=== PATIENT | female | born 1945 | race Caucasian/White ===

== ENCOUNTER 2018-04-13 16:32 | Emergency (ER) | payer MEDICARE ==
[~2018-04-13] VITALS: Ht 152.4 cm; Wt 49.9 kg
[~2018-04-13 16:32] MED LIST: ACTONEL 150 MG; CALGLU500 PO; CARI350; CARI350 PO; CELE200 PO; CETI10; CITRACAL; CITRACAL PO; DESV50; ERGO50000 PO; GABA600 PO; HYDACE10B; IMITREX; METO100ER PO; OMEP20ER PO; POTCHL10ER PO; PRAV10 PO; PREVASTATIN; PRISTIQ PO; PROP20 PO; PROVASTATIN PO; PYRI100; SERT25 PO; SERT50; SERT50 PO; SUMATRIPTAN 50 MG; TERI750 SUBQ; TOPI100 PO; TOPI25 PO; TOPI50 PO; TRAZ50; TRAZADONE PO; TRAZODONE PO; TRIHYD253A PO; VENL75ER; VENL75ER PO; VITAMIN B
[2018-04-13 16:49] LABS: BASOPHILS ABSOLUTE AUTO 0.06 K/mm3 (0.00-0.23); BASOPHILS PERCENT AUTO 1 % (0-2); EOSINOPHILS ABSOLUTE AUTO 0.12 K/mm3 (0.00-0.68); EOSINOPHILS PERCENT AUTO 1 % (0-6); Hematocrit 38.8 % (33.0-51.0); Hemoglobin 13.1 g/dL (11.5-16.0); IMMATURE GRAN ABSOLUTE AUTO 0.07 K/mm3 (0.00-0.10); IMMATURE GRAN PERCENT AUTO 1 % (0-1); LYMPHOCYTES ABSOLUTE AUTO 2.24 K/mm3 (0.84-5.20); LYMPHOCYTES PERCENT AUTO 26 % (21-46); MONOCYTES ABSOLUTE AUTO 0.87 K/mm3 (0.16-1.47); MONOCYTES PERCENT AUTO 10 % (4-13); Mean Corpuscular HGB 31.7 pg (26.0-34.0); Mean Corpuscular HGB Conc 33.8 g/dL (31.5-36.5); Mean Corpuscular Volume 94 fL (80-100); Mean Platelet Volume 7.9 fL (9.1-12.4); NEUTROPHILS ABSOLUTE AUTO 5.16 K/mm3 (1.96-9.15); NEUTROPHILS PERCENT AUTO 61 % (41-73); Platelet Count 213 K/mm3 (150-400); RDW Coefficient Variation 12.5 % (11.7-14.2); RDW Standard Deviation 43.3 fL (35.1-46.3); Red Blood Cell Count 4.13 M/mm3 (3.80-5.20); White Blood Cell Count 8.52 K/mm3 (4.00-11.30)
[2018-04-13 17:02] LABS: Prothrombin Time Results 10.4 Sec (9.7-11.5)
[2018-04-13 17:14] LABS: Alanine Aminotransfer (ALT/SGP 45 U/L (12-78); Albumin, Blood 3.9 g/dL (3.4-5.0); Albumin/Globulin Ratio 1.4 (0.8-1.8); Alk Phos 70 U/L (50-136); Anion Gap 9 mmol/L (6-16); Aspartate Aminotrans (AST/SGOT 28 U/L (12-37); Bilirubin, Total 0.3 mg/dL (0.1-1.0); Blood Urea Nitrogen 16 mg/dL (8-24); Bun/Creatinine Ratio 22.5 (12.0-20.0); CO2, Blood 26 mmol/L (21-32); Calcium, Blood 8.4 mg/dL (8.5-10.1); Chloride, Blood 91 mmol/L (98-108); Creatinine, Blood 0.71 mg/dL (0.40-1.00); Globulin, Blood 2.8 g/dL (2.2-4.0); Glomerular Filtration Rate >60 (60-); Glucose, Blood 101 mg/dL (70-99); Potassium, Blood 3.9 mmol/L (3.5-5.5); Sodium, Blood 126 mmol/L (136-145); Total Protein, Blood 6.7 g/dL (6.4-8.2)
[2018-04-13 17:25] LABS: Ethanol (Alcohol), Blood, Med 297 mg/dL
[2018-04-14] MEDS ORDERED: MELO7.5 PO (00:15)
[2018-04-14] MEDS ORDERED: POTCIT10 (00:18)
== END 2018-04-13 21:02 | disposition home or self-care (01) ==
LOC: ER 16:32
PROVIDERS: Emergency Medicine
DX: S01.01XA Laceration without foreign body of scalp, initial encounter (principal); S40.011A Contusion of right shoulder, initial encounter; F10.129 Alcohol abuse with intoxication, unspecified; I10 Essential (primary) hypertension; F32.9 Major depressive disorder, single episode, unspecified; Z88.2 Allergy status to sulfonamides; Z88.8 Allergy status to other drugs, medicaments and biological substances; Z88.5 Allergy status to narcotic agent; Z79.899 Other long term (current) drug therapy; V40.5XXA Car driver injured in collision with pedestrian or animal in traffic accident, initial encounter; W22.8XXA Striking against or struck by other objects, initial encounter; Y90.8 Blood alcohol level of 240 mg/100 ml or more
CPT/HCPCS: 70450; 71045; 71260; 72125; 73030; 74177; 80053; 83690; 85025; 85610; 85730; 86850; 86900; 86901; 93005; 93010; 96374; 99284; G0480; J3010; Q9967

== ENCOUNTER 2018-11-19 07:48 | Day surgery (SDC) | payer MEDICARE ==
[~2018-11-19] VITALS: Ht 157.5 cm; Wt 50.2 kg
[~2018-11-19 07:48] MED LIST changes: +AMLO5 PO; +BENZ100A PO; +BIOTIN2500 MCG PO; +CALCITRATE200 MG PO; +DIVIGEL1 EAC1 VAG; +Dyazide 37.5-21 EACH PO; +Gabapentin600 MG PO; +Imitrex100 MG PO; +MELO7.5 PO; +METPHE5 PO; +Micro-K10 MEQ PO; +Norco 10-325 T1 EACH PO; +Omeprazole20 M1 PO; +POTCIT10; +PRAVASTATIN SOD10 MG PO; +Pristiq100 MG PO; +Reclast 55 MG/100 M IV; +SERT100 PO; +Trazodone HCl300 MG PO; +VITAMIN D35000 UNIT PO; +ZYRTEC10 M1 PO
--- NOTE | 2018-11-19 08:49 | NUR ---
11/19/18 0849 Valdez Sanchez FIRST IV ATTEMP IN RIGHT HAND WOULD NOT THREAD. SECOND ATTEMP IN RIGHT FOREARM SUCCESSFUL. CALL LIGHT WITHIN REACH. PT RESTING COMFORTABLY.
--- NOTE | 2018-11-19 10:24 | NUR ---
11/19/18 Lata Franco 1% LIDOCAINE MIXED WITH .25% MARCAINE FOR LOCAL, PER DR AMARAL.
--- NOTE | 2018-11-19 10:56 | NUR ---
11/19/18 1056 Kate Meadows PT INTO RECLINER AT 1037, STEADY DURING TRANSFER. PT DAYANAAinsley KHOURY IS ON HER WAY. PT DENIES PAIN OR NAUSEA AT THIS TIME. TOLERATING PO NOURISHMENT. VSS. PILLOW BEHIND LOWER BACK FOR COMFORT, LEGS ELEVATED, AND CALL LIGHT IN REACH.
== END 2018-11-19 11:14 | disposition home or self-care (01) ==
LOC: ORSCSDS 07:48
PROVIDERS: Surgery
PROC: 0JBH0ZZ Excision of Left Lower Arm Subcutaneous Tissue and Fascia, Open Approach (ICD-10-PCS; principal; 2018-11-19 09:00)
DX: D17.22 Benign lipomatous neoplasm of skin and subcutaneous tissue of left arm (principal); I10 Essential (primary) hypertension; Z79.899 Other long term (current) drug therapy
CPT/HCPCS: 88304; J0690; J2250; J3010; J7120

== ENCOUNTER 2018-12-22 06:47 | Day surgery (SDC) | payer MEDICARE ==
[~2018-12-22] VITALS: Ht 157.5 cm; Wt 49.4 kg
[2018-12-22] MEDS ORDERED: HYDR1TAB94 PO (07:18)
== END 2018-12-22 08:30 | disposition home or self-care (01) ==
LOC: ORSCSDS 06:47
PROVIDERS: Ophthalmology
PROC: 08RJ3JZ Replacement of Right Lens with Synthetic Substitute, Percutaneous Approach (ICD-10-PCS; principal; 2018-12-22 08:00)
DX: H25.11 Age-related nuclear cataract, right eye (principal); I10 Essential (primary) hypertension; G47.33 Obstructive sleep apnea (adult) (pediatric); Z87.891 Personal history of nicotine dependence; Z79.899 Other long term (current) drug therapy
CPT/HCPCS: J2001; J2250; J3301; J7120; V2632

== ENCOUNTER 2019-01-19 08:05 | Day surgery (SDC) | payer MEDICARE ==
[~2019-01-19] VITALS: Ht 157.5 cm; Wt 50.8 kg
[~2019-01-19 08:05] MED LIST changes: +HYDR1TAB94 PO
--- NOTE | 2019-01-19 15:18 | NUR ---
01/19/19 1518 Lamont Perez LATE ENTRY NARRATIVE PATIENT INTO SDU RECLINER, VSS, TOLERATING PO FLUIDS AND CRACKERS WELL, DENIES PAIN AT THIS TIME. IS AT CHAIRSIDE DC INSTRUCTIONS REVIEWED WITH PATIENT AND , NO QUESTIONS AT THIS TIME. NURSE ASSISTED PATIENT WALK OUT TO HER RIDE HOME.
== END 2019-01-19 10:35 | disposition home or self-care (01) ==
LOC: ORSCSDS 08:05
PROVIDERS: Ophthalmology
PROC: 08RK3JZ Replacement of Left Lens with Synthetic Substitute, Percutaneous Approach (ICD-10-PCS; principal; 2019-01-19 09:30)
DX: H25.12 Age-related nuclear cataract, left eye (principal); I10 Essential (primary) hypertension; Z79.899 Other long term (current) drug therapy
CPT/HCPCS: J2001; J2250; J3010; J3301; J7120; V2632

== ENCOUNTER → 2019-04-06 | Outpatient (CLI) | payer MEDICARE | END | disposition home or self-care (01) | LOC: LAB 11:10 → LAB SHORT 11:10 | DX: N39.0 Urinary tract infection, site not specified (principal) | CPT/HCPCS: 87077; 87086; 87186 ==

== ENCOUNTER 2019-04-10 12:09 | Emergency (ER) | payer MEDICARE ==
[~2019-04-10] VITALS: Ht 157.5 cm; Wt 49.0 kg
== END 2019-04-10 13:00 | disposition home or self-care (01) ==
LOC: ER 12:09
DX: S00.31XA Abrasion of nose, initial encounter (principal); M25.511 Pain in right shoulder; W01.0XXA Fall on same level from slipping, tripping and stumbling without subsequent striking against object, initial encounter; Z88.2 Allergy status to sulfonamides; Z88.5 Allergy status to narcotic agent; Z88.8 Allergy status to other drugs, medicaments and biological substances; Z79.899 Other long term (current) drug therapy; I10 Essential (primary) hypertension; F32.9 Major depressive disorder, single episode, unspecified; K21.9 Gastro-esophageal reflux disease without esophagitis; E78.5 Hyperlipidemia, unspecified; Z87.891 Personal history of nicotine dependence
CPT/HCPCS: 73030; 99283-25

== ENCOUNTER → 2020-03-19 | Outpatient (CLI) | payer MEDICARE ==
[2020-03-19 13:53] LABS: Source, Urine Clean Catch
[2020-03-19 15:02] LABS: Bilirubin, Urine Neg (Neg); Blood, Urine Neg (Neg); Glucose Qualitative, Urine Neg (Neg); Ketones, Urine Neg (Neg); Leukocyte Esterase, Urine Neg (Neg); Nitrite, Urine Pos (Neg); Protein, Urine Neg (Neg); Specific Gravity, Urine 1.015 (1.003-1.022); Urobilinogen, Urine 1+ (Normal)
[2020-03-19 15:09] LABS: Appearance, Urine Clear (Clear); Color, Urine Orange (P-Yellow)
[2020-03-19 15:12] LABS: Bacteria Few /hpf; Mucus Light (0-Heavy); Red Blood Cells, Urine Not Seen /hpf (0-2); Renal Epithelial Rare /hpf (0-Rare); Squamous Epithelial Cells Few /hpf (Few)
== END | disposition home or self-care (01) ==
LOC: LAB SHORT 13:49 → OLS 13:49
PROVIDERS: Physician Assistant
DX: N39.0 Urinary tract infection, site not specified (principal)
CPT/HCPCS: 81001; 87086

== ENCOUNTER 2021-02-08 16:14 | Inpatient (IN) | payer MEDICARE ==
[~2021-02-08] VITALS: Ht 162.6 cm; Wt 52.2 kg
[2021-02-08 16:33] LABS: BASOPHILS ABSOLUTE AUTO 0.05 K/mm3 (0.00-0.23); BASOPHILS PERCENT AUTO 0 % (0-2); EOSINOPHILS ABSOLUTE AUTO 0.05 K/mm3 (0.00-0.68); EOSINOPHILS PERCENT AUTO 0 % (0-6); Hematocrit 36.6 % (33.0-51.0); Hemoglobin 12.2 g/dL (11.5-16.0); IMMATURE GRAN PERCENT AUTO 1 % (0-1); LYMPHOCYTES ABSOLUTE AUTO 0.88 K/mm3 (0.84-5.20); LYMPHOCYTES PERCENT AUTO 8 % (21-46); MONOCYTES ABSOLUTE AUTO 0.71 K/mm3 (0.16-1.47); MONOCYTES PERCENT AUTO 6 % (4-13); Mean Corpuscular HGB 34.6 pg (26.0-34.0); Mean Corpuscular HGB Conc 33.3 g/dL (31.5-36.5); Mean Corpuscular Volume 104 fL (80-100); Mean Platelet Volume 8.2 fL (9.1-12.4); NEUTROPHILS ABSOLUTE AUTO 9.64 K/mm3 (1.96-9.15); NEUTROPHILS PERCENT AUTO 84 % (41-73); Platelet Count 157 K/mm3 (150-400); RDW Coefficient Variation 13.9 % (11.7-14.2); RDW Standard Deviation 53.2 fL (35.1-46.3); Red Blood Cell Count 3.53 M/mm3 (3.80-5.20); White Blood Cell Count 11.43 K/mm3 (4.00-11.30)
[2021-02-08 17:01] LABS: Alanine Aminotransfer (ALT/SGP 23 U/L (12-78); Albumin, Blood 3.8 g/dL (3.4-5.0); Albumin/Globulin Ratio 1.4 (0.8-1.8); Alk Phos 56 U/L (50-136); Anion Gap 11 mmol/L (6-16); Aspartate Aminotrans (AST/SGOT 28 U/L (12-37); Bilirubin, Total 0.2 mg/dL (0.1-1.0); Blood Urea Nitrogen 18 mg/dL (8-24); CO2, Blood 23 mmol/L (21-32); Calcium, Blood 8.3 mg/dL (8.5-10.1); Chloride, Blood 101 mmol/L (98-108); Creatinine, Blood 0.67 mg/dL (0.40-1.00); Globulin, Blood 2.8 g/dL (2.2-4.0); Glomerular Filtration Rate >60 (60-); Glucose, Blood 124 mg/dL (70-99); Potassium, Blood 3.5 mmol/L (3.5-5.5); Sodium, Blood 135 mmol/L (136-145); Total Protein, Blood 6.6 g/dL (6.4-8.2)
[2021-02-08 17:04] LABS: International Normalized Ratio 0.95; Prothrombin Time Results 10.2 Sec (9.7-11.5)
[2021-02-08 18:27] LABS: Influenza A, PCR NEGATIVE (NEGATIVE); Influenza B, PCR NEGATIVE (NEGATIVE); Resp Syncytial Virus, PCR NEGATIVE (NEGATIVE); SARS-Cov-2 (COVID-19) PCR, MMC NEGATIVE (NEGATIVE)
[2021-02-08] MEDS ORDERED: HYDROCODONE-AC1 EA11 PO (18:37)
[2021-02-08] MEDS ORDERED: PRAVASTATIN SOD20 MG PO (18:38)
[2021-02-08] MEDS ORDERED: OMEP20ER PO (18:38)
[2021-02-08] MEDS ORDERED: BENZONATATE100 MG PO (18:38)
[2021-02-08] MEDS ORDERED: AMLODIPINE BESY10 MG PO (18:38)
[2021-02-08] MEDS ORDERED: TOPROL XL50 MG PO (18:39)
[2021-02-08] MEDS ORDERED: GABAPENTIN600 MG PO (18:39)
[2021-02-08] MEDS ORDERED: TRAZ150T57 PO (18:39)
[2021-02-08] MEDS ORDERED: KLOR-CON 1010 ME1 PO (18:40)
[2021-02-08] MEDS ORDERED: Dyazide 37.5/251 EA PO (18:40)
[2021-02-08] MEDS ORDERED: CELEBREX200 MG PO (19:29)
[2021-02-08] MEDS ORDERED: METO50ER PO (19:29)
[2021-02-08] MEDS ORDERED: DESVENLAFAXINE100 M3 PO (19:29)
--- NOTE | 2021-02-08 21:32 | NUR ---
PT RECEIVED FOR RECOVERY FROM ICU, REPORT FROM JANICE CRUZ AND . IV INFUSING IN RIGHT FOREARM. SALINE LOCK LEFT AC. TRACTION TO LEFT LEG, OBVIOUS DEFORMITY. LEFT ARM PAINFUL WITH LIGHT TOUCH. PT ABLE TO ANSWER QUESTIONS,ASK QUESTIONS AND REQUEST BLANKETS, WATER AND HEATER TURNED UP. PT MEDICATED FOR PAIN OF 9/10 WITH FENTANYL. REPORT TO JANICE NEWBY. WILL GO TO CT ON WAY TO ROOM PER PROVIDER ORDER.
[2021-02-09 04:08] LABS: BASOPHILS ABSOLUTE AUTO 0.02 K/mm3 (0.00-0.23); BASOPHILS PERCENT AUTO 0 % (0-2); EOSINOPHILS PERCENT AUTO 0 % (0-6); Hematocrit 21.5 % (33.0-51.0); Hemoglobin 7.1 g/dL (11.5-16.0); IMMATURE GRAN ABSOLUTE AUTO 0.08 K/mm3 (0.00-0.10); IMMATURE GRAN PERCENT AUTO 1 % (0-1); LYMPHOCYTES ABSOLUTE AUTO 0.49 K/mm3 (0.84-5.20); LYMPHOCYTES PERCENT AUTO 6 % (21-46); MONOCYTES ABSOLUTE AUTO 0.87 K/mm3 (0.16-1.47); MONOCYTES PERCENT AUTO 10 % (4-13); Mean Corpuscular HGB 34.3 pg (26.0-34.0); Mean Corpuscular Volume 104 fL (80-100); Mean Platelet Volume 8.3 fL (9.1-12.4); NEUTROPHILS ABSOLUTE AUTO 6.87 K/mm3 (1.96-9.15); NEUTROPHILS PERCENT AUTO 83 % (41-73); Platelet Count 131 K/mm3 (150-400); RDW Standard Deviation 52.8 fL (35.1-46.3); Red Blood Cell Count 2.07 M/mm3 (3.80-5.20); White Blood Cell Count 8.33 K/mm3 (4.00-11.30)
--- NOTE | 2021-02-09 04:13 | NUR ---
SHIFT SUMMARY NEW ADMIT YESTARDAY EVENING. PT TO OR YESTARDAY FOR CLOSED REDUCTION TO LEFT HIP. NPO THIS AM FOR POSSIBLE SURGICAL INTERVENTION TO FIX LEFT FEMUR + HUMERUS FX. PAIN CONTROLLED WITH 0.5 MG IV DILAUDID. NO NAUSEA/EMESIS. NPO SINCE MIDNIGHT. LLE DEFORMED + EXTERNALLY ROTATED AND SHORTENED. PPP, DENIES N/T, MOVES TOES + FINGERS WELL ON ALL EXTREMITIES. LLE IN 5LBS BUCKS TRACTION. VALLE PLACED THIS AM. PT ANXIOUS AT TIMES REGARDING TREATMENT AND WAIT TIMES, DECREASED ANXIETY WITH REASSURANCE. PT CURRENTLY RESTING IN BED WITH CALL LIGHT IN REACH.
[2021-02-09 04:37] LABS: Albumin, Blood 2.8 g/dL (3.4-5.0); Anion Gap 6 mmol/L (6-16); Blood Urea Nitrogen 18 mg/dL (8-24); Bun/Creatinine Ratio 31.1 (12.0-20.0); CO2, Blood 24 mmol/L (21-32); Calcium, Blood 7.3 mg/dL (8.5-10.1); Chloride, Blood 104 mmol/L (98-108); Creatinine, Blood 0.58 mg/dL (0.40-1.00); Glomerular Filtration Rate >60 (60-); Glucose, Blood 118 mg/dL (70-99); Potassium, Blood 3.9 mmol/L (3.5-5.5); Sodium, Blood 134 mmol/L (136-145)
--- NOTE | 2021-02-09 08:19 | NUR ---
OTHER STAFF HERE TO TAKE PT TO HAVE PROCEDURE. PT MED WITH SIP OF WATER WITHOUT DIFFICULTY.
--- NOTE | 2021-02-09 13:26 | NUR ---
PT BACK FROM HAVING PROCEDURE. PT HAS SMALL AMT OF DRAINAGE ON DRESSINGS, PRESCHOOL HEAD TEACHER REPORTS UNCHANGED FROM WHEN COMING OUT OF SURGERY. PT ALERT. PT REPORTS HAVING PAIN, WILL MED PRN PAIN. PT ABLE TO FOLLOW COMMANDS. WIGGLES TOES. PAS IN PLACE. PPX4.
--- NOTE | 2021-02-09 13:27 | NUR ---
PT REPORTED TO HAVE THE 2 UNITS OF BLOOD ORDERED EARLIER TODAY WHEN PT WAS OUT OF ROOM, SEE PAPER CHARTING.
--- NOTE | 2021-02-09 14:27 | NUR ---
PT REPORTS PAIN GETTING BETTER. PT REQ WATER, REPORTS WANTING TO START OUT WITH CLEAR LIQUID DIET EXCEPT MAYBE SOME SALTINES. DISCUSSED DIET WITH DR HERRERA. SEE ORDERS. FAMILY IN ROOM. WILL ASSIST WITH ADL'S PRN.
[2021-02-09 16:19] LABS: Percent Saturation 27.8 % (15.0-50.0)
--- NOTE | 2021-02-09 17:59 | NUR ---
WHEN PT BACK FROM IMAGING, PT WAS TRANSFERRED WITH MULT ASSIST. PT C/O PAIN AND NAUSEA. NO MEDICATION ORDERED FOR NAUSEA. PT REQUESTED TO BE MEDICATED FOR PAIN BEFORE CALLING DR FOR NAUSEA MEDICATION. PT MED FOR PAIN. PT RESTING QUIELTY AFTER HAVING PAIN MEDICATION. DISCUSSED NO MED FOR NAUSEA WITH DR GAMING. SEE ORDER.
--- NOTE | 2021-02-09 18:30 | NUR ---
SHIFT SUMMARY PT TOLERATING C.L. DIET ALTHOUGH NAUSEOUS EARLIER FROM WHAT APPEARED TO BE PAIN. PT RESTING QUIETLY RESP E/U NOW. PT BEEN ASSISTED WITH ADL'S PRN. PT BEEN MED PRN FOR PAIN. PT REQUESTED TO HAVE C.L. DIET, ORDERED. PT FAMILY IN ROOM EALIER TODAY. PT USING CALL LIGHT APPR. PT DRESSING CONT TO BE IN PLACE, VALLE OFF FLOOR, STAT LOC ON. BED ALARM IN PLACE. PT BEEN MED PRN FOR PAIN. PT HAD PROCEDURE TODAY. PT REPORTED TO HAVE 2 UNITS OF BLOOD DURING PROCEDURE, SEE PAPER CHARTING. WILL REPORT TO ONCOMING NURSE.
[2021-02-10 04:13] LABS: Hematocrit 21.2 % (33.0-51.0); Hemoglobin 7.3 g/dL (11.5-16.0); Mean Corpuscular HGB 33.2 pg (26.0-34.0); Mean Corpuscular HGB Conc 34.4 g/dL (31.5-36.5); Mean Platelet Volume 8.4 fL (9.1-12.4); Platelet Count 115 K/mm3 (150-400); RDW Coefficient Variation 18.2 % (11.7-14.2); RDW Standard Deviation 63.5 fL (35.1-46.3); White Blood Cell Count 6.21 K/mm3 (4.00-11.30)
[2021-02-10 04:17] LABS: Mean Corpuscular Volume 96 fL (80-100)
--- NOTE | 2021-02-10 04:19 | NUR ---
SHIFT SUMMARY POD#1. AAOX4. DISCOMFORT DECREASED WITH NORCO Q6H + 0.5MG IV DILAUDID X3 THIS SHIFT FOR BREAKTHROUGH PAIN. NO NAUSEA/EMESIS. DRESSING TO LEFT HIP, SCANT AMOUNT SS DRAINAGE ALONG INCISION, NO INCREASE THIS SHIFT. PPP, DENIES N/T ALL EXTREMITIES, MOVES TOES + FINGERS WELL. LUE WITH BRUISING TO ANTERIOR DELTOID + BICEP. PT RESTED WELL T/O NIGHT. GOOD PO INTAKE + URINE OUTPUT THROUGH VALLE. CONTINUE TO ENCOURAGE REPOSITIONING IN BED TOLERATED. AWAITING LABS THIS MORNING. PT CURRENTLY RESTING IN BED WITH CALL LIGHT IN REACH.
[2021-02-10 04:30] LABS: Anion Gap 4 mmol/L (6-16); Blood Urea Nitrogen 14 mg/dL (8-24); Bun/Creatinine Ratio 23.8 (12.0-20.0); CO2, Blood 27 mmol/L (21-32); Calcium, Blood 7.3 mg/dL (8.5-10.1); Chloride, Blood 104 mmol/L (98-108); Creatinine, Blood 0.59 mg/dL (0.40-1.00); Glomerular Filtration Rate >60 (60-); Glucose, Blood 114 mg/dL (70-99); Potassium, Blood 3.8 mmol/L (3.5-5.5); Sodium, Blood 135 mmol/L (136-145)
[2021-02-10 05:27] LABS: BAND PERCENT MAN 5 % (0-8); BASOPHILS ABSOLUTE MAN 0.06 K/mm3 (0.00-0.23); BASOPHILS PERCENT MAN 1 % (0-2); EOSINOPHILS PERCENT MAN 0 % (0-6); LYMPHOCYTES ABSOLUTE MAN 0.68 K/mm3 (0.84-5.20); LYMPHOCYTES PERCENT MAN 11 % (21-46); MONOCYTES ABSOLUTE MAN 0.55 K/mm3 (0.16-1.47); MONOCYTES PERCENT MAN 9 % (4-13); SEG NEUTROPHILS PERCENT MAN 74 % (41-73); TOTAL CELLS COUNTED 100
--- NOTE | 2021-02-10 06:21 | NUR ---
PT WITH INCREASED PAIN + LOW H+H HEMOGLOBIN 7.3 WITH LOW BP, DR JOHNSON NOTIFIED, NO NEW ORDERS AT THIS TIME.
--- NOTE | 2021-02-10 15:43 | NUR ---
SHIFT SUMMARY PT A&OX4, VSS/RA, POD1 L HIP REPAIR, AQUACEL CHANGED TODAY, NWB. PAIN MANAGED PER EMAR. UYEN PO, DENIES N&V. VALLE PATENT & DRAINING YELLOW URINE, STAT LOCK ON, OFF FLOOR. PHYSICAL THERAPY EVAL'D, STOOD BEDSIDE, PIVOT WITH 2 MAX ASSIST TO CHAIR. WILL REPORT TO ONCOMING NIC RN.
[2021-02-11 05:13] LABS: Hematocrit 20.5 % (33.0-51.0); Mean Corpuscular HGB Conc 34.1 g/dL (31.5-36.5); Mean Corpuscular Volume 97 fL (80-100); Mean Platelet Volume 8.6 fL (9.1-12.4); NRBC ABSOLUTE 0.02 K/mm3 (0.00-0.02); NRBC Auto 0.3 /100 WBC (0.0-0.2); Platelet Count 109 K/mm3 (150-400); RDW Coefficient Variation 16.9 % (11.7-14.2); RDW Standard Deviation 59.2 fL (35.1-46.3); Red Blood Cell Count 2.12 M/mm3 (3.80-5.20)
[2021-02-11 05:34] LABS: BAND PERCENT MAN 11 % (0-8); BASOPHILS ABSOLUTE MAN 0.06 K/mm3 (0.00-0.23); BASOPHILS PERCENT MAN 1 % (0-2); EOSINOPHILS ABSOLUTE MAN 0.06 K/mm3 (0.00-0.68); EOSINOPHILS PERCENT MAN 1 % (0-6); LYMPHOCYTES ABSOLUTE MAN 0.53 K/mm3 (0.84-5.20); LYMPHOCYTES PERCENT MAN 8 % (21-46); MONOCYTES ABSOLUTE MAN 0.46 K/mm3 (0.16-1.47); MONOCYTES PERCENT MAN 7 % (4-13); NEUTROPHILS ABSOLUTE MAN 5.56 K/mm3 (1.96-9.15); SEG NEUTROPHILS PERCENT MAN 72 % (41-73); TOTAL CELLS COUNTED 100
--- NOTE | 2021-02-11 05:35 | NUR ---
SHIFT SUMMARY POD#2 ORIF LEFT FEMUR. AAOX4. ANXIOUS. DISCOMFORT + NEW HEADACHE CONTROLLED WITH 2 NORCO Q4H. NO NAUSEA/EMESIS. LEFT HIP INCISION WITH AQUACEL C/D/I. PPP, DENIES N/T BLE, MOVES TOES WELL. LUE WITH MODERATE SIZE BRUISING TO ANTERIOR SHOULDER, NO ACUTE CHANGE THIS SHIFT. VALLE SECURE WITH LARGE AMOUNTS OF YELLOW URINE OUT. GOOD PO INTAKE. NO ACUTE CHANGES OVER NIGHT. PT CURRENTLY RESTING IN BED WITH CALL LIGHT IN REACH.
[2021-02-11 08:29] LABS: BASOPHILS ABSOLUTE AUTO 0.02 K/mm3 (0.00-0.23); BASOPHILS PERCENT AUTO 0 % (0-2); EOSINOPHILS ABSOLUTE AUTO 0.03 K/mm3 (0.00-0.68); EOSINOPHILS PERCENT AUTO 0 % (0-6); IMMATURE GRAN ABSOLUTE AUTO 0.06 K/mm3 (0.00-0.10); IMMATURE GRAN PERCENT AUTO 1 % (0-1); LYMPHOCYTES ABSOLUTE AUTO 1.02 K/mm3 (0.84-5.20); LYMPHOCYTES PERCENT AUTO 15 % (21-46); MONOCYTES ABSOLUTE AUTO 0.83 K/mm3 (0.16-1.47); MONOCYTES PERCENT AUTO 12 % (4-13); NEUTROPHILS ABSOLUTE AUTO 5.06 K/mm3 (1.96-9.15); NEUTROPHILS PERCENT AUTO 72 % (41-73)
[2021-02-11 08:41] LABS: IMMATURE RETIC FRACTION 29.5 % (2.3-16.0); RETIC HGB EQUIVALENT 38.3 pg (28.20-36.60); RETICULOCYTE ABSOLUTE 0.1336 M/mm3 (0.0200-0.1100); RETICULOCYTE COUNT PERCENT 6.27 % (0.50-2.50)
--- NOTE | 2021-02-11 13:15 | NUR ---
PT C/O SWELLING ON TONGUE, STATES SHE FEELS LIKE SHE IS HAVING DIFFICULTY SPEAKING, PT'S SPEECH IN COMPREHENSIBLE, DENIES ANY NEW NUMBNESS OR TINGLING, SOB OR ANY OTHER SYMPTOMS, APPEARS TO BE IN NO DISTRESS DR. GAMING NOTIFIED, CAME AND SAW PT, NO NEW ORDERS, PT SITING ON CHAIR, CALL LIGHT WITHIN REACH, INSTRUCTED TO CALL IF FEELING WORSE.
--- NOTE | 2021-02-11 18:21 | NUR ---
SUMMARY OOB TO CHAIR W/ PT/OT TODAY, TOLERATED FAIRLY WELL, 2 PERSON MAX ASSIST BACK TO BED, REPORTS PAIN IS TOLERABLE WITH NORCO Q4HRS PRN, DENIES ANY DIZZINESS WHEN UP, HAD A BM TODAY, TOLERATING DIET WELL, LLE DSG C/D/I, PLAN FOR SURGICAL REPAIR OF L HUMERUS LATER ON PER DR. HERRERA, NO ACUTE CHANGES THIS SHIFT.
--- NOTE | 2021-02-12 02:39 | NUR ---
SHIFT SUMMARY: POD 3 LEFT FEMUR ORIF PATIENT IS ALERT AND ORIENTED X4 WHILE AWAKE. SHE HAS BEEN ASLEEP MAJORITY OF THE SHIFT. VS ARE WNL AND IS ON RA. PAIN IS CONTROLLED WITH 2 NORCO'S PO. LEFT HIP AQUACEL IS INTACT. PATIENT DENIES HAVING NUMBNESS OR TINGLING IN ANY EXTREMITIES. SHE IS A 1 PERSON ASSIST ON THE BEDPAN BUT IS TWO PERSON MAX WHEN ATTEMPTING TO GET UP. SHE IS NON WEIGHT BEARING ON THE LEFT LEG. SHE HAS MODERATE SIZE BRUISE ON HER RIGHT SHOULDER. PATIENT HAS BEEN VOIDING AND TOLERATING PO INTAKE. SHE CALLS APPROPRIATELY. CALL LIGHT WITHIN REACH. THE PLAN IS TO CONTINUE WORKING WITH PT/OT TODAY.
[2021-02-12 04:35] LABS: Hematocrit 19.1 % (33.0-51.0); Hemoglobin 6.4 g/dL (11.5-16.0)
--- NOTE | 2021-02-12 05:24 | NUR ---
PATIENTS MORNING LABS CAME BACK THIS MORNING. HER Hgb CAME BACK AT 6.4 AND HER HR IS 120 BPM THIS MORNING. THIS NURSE CALLED THE HOSPITALIST ABOUT THIS INFORMATION. HOSPITALIST ORDERED 1 PACK OF RBC'S TO BE ADMINISTERED. LABS WERE ORDERED. CHARGE NURSE NOTIFIED. PATIENT IS LAYING IN BED WITH CALL LIGHT WITHIN REACH. WILL WAIT FOR RBC'S TO COME FROM BLOOD BANK TO ADMINISTER TO PATIENT.
[2021-02-12 16:47] LABS: Hematocrit 25.7 % (33.0-51.0); Hemoglobin 8.7 g/dL (11.5-16.0)
--- NOTE | 2021-02-12 18:01 | NUR ---
WORKED W/ PT/OT TODAY, PAIN TOLERABLE WITH NORCO, DENIES ANY DIZZINESS, VSS, L HIP DSG CHANGED TODAY, PLAN FOR SURGERY ON L HUMERUS ON THURSDAY PER DR. HERRERA, PT AND PT'S DAUGHTER MET WITH DR. HERRERA THIS AFTERNOON TO DISCUSS SURGERY, NO ACUTE CHANGES THIS SHIFT.
[2021-02-13 05:06] LABS: BASOPHILS ABSOLUTE AUTO 0.02 K/mm3 (0.00-0.23); BASOPHILS PERCENT AUTO 0 % (0-2); EOSINOPHILS ABSOLUTE AUTO 0.19 K/mm3 (0.00-0.68); EOSINOPHILS PERCENT AUTO 3 % (0-6); Hematocrit 24.9 % (33.0-51.0); Hemoglobin 8.2 g/dL (11.5-16.0); IMMATURE GRAN ABSOLUTE AUTO 0.13 K/mm3 (0.00-0.10); IMMATURE GRAN PERCENT AUTO 2 % (0-1); LYMPHOCYTES ABSOLUTE AUTO 1.11 K/mm3 (0.84-5.20); LYMPHOCYTES PERCENT AUTO 19 % (21-46); MONOCYTES ABSOLUTE AUTO 0.95 K/mm3 (0.16-1.47); MONOCYTES PERCENT AUTO 17 % (4-13); Mean Corpuscular HGB 31.8 pg (26.0-34.0); Mean Corpuscular HGB Conc 32.9 g/dL (31.5-36.5); Mean Corpuscular Volume 97 fL (80-100); NEUTROPHILS ABSOLUTE AUTO 3.36 K/mm3 (1.96-9.15); NEUTROPHILS PERCENT AUTO 58 % (41-73); NRBC ABSOLUTE 0.04 K/mm3 (0.00-0.02); NRBC Auto 0.7 /100 WBC (0.0-0.2); Platelet Count 156 K/mm3 (150-400); RDW Coefficient Variation 19.2 % (11.7-14.2); RDW Standard Deviation 67.2 fL (35.1-46.3); Red Blood Cell Count 2.58 M/mm3 (3.80-5.20); White Blood Cell Count 5.76 K/mm3 (4.00-11.30)
--- NOTE | 2021-02-13 05:28 | NUR ---
SHIFT SUMMARY: PT POD#4 FOR ORIF TO LEFT FEMUR. UPON INITIAL ASSESSMENT, LLE NOTED TO BE SWOLLEN AND WARM TO TOUCH. PT NOT COMPLAINING OF SIGNIFICANT PAIN AT THIS TIME. THIS MORNING LLE APPEARS TO BE SLIGHTLY MORE SWOLLEN COMPARED TO BEGINNING OF SHIFT. SKIN APPEARS TIGHT. MEASUREMENTS TAKEN TO BLE'S. JUDY KNEE APPROX 5CM GREATER THAN RIGHT KNEE AND LEFT THIGH APPROX 11CM GREATER THAN RIGHT THIGH. PEDAL PULSE HAS REMAINED STRONG T/O SHIFT. PT ABLE TO WIGGLE TOES. DENIES N/T THROUGHOUT. HGB STABLE THIS MORNING AT 8.2. WILL NOTIFY DR OF PT CONDITION PRIOR TO SHIFT CHANGE.
[2021-02-13 05:31] LABS: Anion Gap 5 mmol/L (6-16); Blood Urea Nitrogen 10 mg/dL (8-24); Bun/Creatinine Ratio 19.2 (12.0-20.0); CO2, Blood 30 mmol/L (21-32); Calcium, Blood 8.2 mg/dL (8.5-10.1); Chloride, Blood 106 mmol/L (98-108); Creatinine, Blood 0.52 mg/dL (0.40-1.00); Glomerular Filtration Rate >60 (60-); Glucose, Blood 88 mg/dL (70-99); Potassium, Blood 3.7 mmol/L (3.5-5.5); Sodium, Blood 141 mmol/L (136-145)
--- NOTE | 2021-02-13 07:31 | NUR ---
ASSUMED CARE: PT RESTING QUIETLY. NIGHT RN EXPRESSED CONCERN ABOUT PT'S LEFT LEG. DISCUSSED WITH MANAGER MATH SO WE CAN CONTINUE TO MONITOR AND NOTIFY ANY PHYSICIANS THAT COME TO SEE PT. PT APPEARS TO BE IN NO ACUTE DISTRESS AT THIS TIME.
--- NOTE | 2021-02-13 09:00 | NUR ---
MELITON FROM THE ORTHO OFFICE CAME IN AND ASSESSED PT'S LEFT LEG. STATES THAT THIS KIND OF SWELLING IS NORMAL FOR PT'S SURGERY. HE STATES THAT CABLES WERE ADDED FOR SECUREMENT OF FRACTURE SO PT WILL HAVE MORE SWELLING THAN IS TYPICALLY SEEN. MELITON SUGGESTED SANDOVAL WRAP FROM KNEE TO ANKLE AND ICE, BOTH OF WHICH HAVE BEEN APPLIED.
--- NOTE | 2021-02-13 17:30 | NUR ---
PT EXPRESSED CONCERN ABOUT GETTING UTI DUE TO URGENCY AND FREQUENCY OF URINATION. SPOKE WITH DR GAMING WHO INSTRUCTS FOR CLEAN CLATCH UA AND ALLOWS FOR PT'S FAMILY TO BRING IN HOME MED THAT SHE USES TO PREVENT UTI. SEE NEW ORDERS.
--- NOTE | 2021-02-13 18:27 | NUR ---
SHIFT SUMMARY: PLAN IS FOR PT TO HAVE SHOULDER SURGERY TOMORROW. MEDICATED FOR PAIN X2. SWELLING IN LEFT LEG HAS DECREASED THIS SHIFT. PT WAS UP IN CHAIR X1. FAMILY WAS AT BEDSIDE TODAY. AWAITING URINE SAMPLE. NO FURTHER NEEDS OR CONCERNS AT THIS TIME.
[2021-02-13 20:17] LABS: Source, Urine Clean Catch
[2021-02-13 20:23] LABS: Appearance, Urine Clear (Clear); Bilirubin, Urine Neg (Neg); Blood, Urine Neg (Neg); Color, Urine Yellow (P-Yellow); Glucose Qualitative, Urine Neg (Neg); Ketones, Urine Neg (Neg); Leukocyte Esterase, Urine 1+ (Neg); Nitrite, Urine Neg (Neg); Protein, Urine Neg (Neg); Urobilinogen, Urine 1+ (Normal)
[2021-02-13 20:36] LABS: Bacteria Mod /hpf; Red Blood Cells, Urine 0-2 /hpf (0-2); Squamous Epithelial Cells Few /hpf (Few)
[2021-02-13 20:37] LABS: White Blood Cells, Urine 0-2 /hpf (0-5)
--- NOTE | 2021-02-14 03:55 | NUR ---
SHIFT SUMMARY: NO SIGNIFICANT CHANGES THIS SHIFT. S/P ORIF TO LEFT FEMUR. SANDOVAL WRAP INTACT TO LLE TO REDUCE SWELLING. SWELLING APPEARS TO BE IMPROVING. PT DENIES N/T. WIGGLES TOES. PAIN MANAGED WITH NORCO PER EMAR. PT VOIDING IN BEDPAN. INCONTINENT ONCE REQUIRING LINEN CHANGE. PT REPORTS URINARY URGENCY; PROVIDER AWARE AND UA OBTAINED. PT HAS BEEN NPO FOR PLANNED SURGERY TO LEFT SHOULDER.
[2021-02-14 04:34] LABS: Hematocrit 24.1 % (33.0-51.0); Hemoglobin 8.1 g/dL (11.5-16.0)
--- NOTE | 2021-02-14 06:15 | NUR ---
PT TAKEN TO OR AT THIS TIME
--- NOTE | 2021-02-14 07:04 | NUR ---
THE PATIENT WAS BROUGHT TO DAY SURGERY FOR HER PROCEDURE. Surgical site prepped with 2% Chlorhexidine cloth wipe. Maria Isabel Paws warming gown applied. History, Chart, Medications and Allergies reviewed before start of procedure.Lungs clear T/O to Auscultation. Patient confirms NPO status and agrees with scheduled surgery. Pre-Op teaching done. Pt verbalizes understanding.
--- NOTE | 2021-02-14 11:28 | NUR ---
1045 TO ROOM FROM PACU. PT DROWSY, ANSWERS QUESTIONS. PT REPORTS SLIGHT NUMBNESS TO LEFT THUMB. BILATERAL HANDS WARM WITH IMMEDIATE CAPILLARY REFILL. SLING IN PLACE TO LEFT ARM.
--- NOTE | 2021-02-14 18:16 | NUR ---
SUMMARY PT REPORST LEFT HIP AND SHOULDER PAIN AT LEVEL 4-10, PT STATES HAS SLEPT FOR SHORT PERIODS. UYEN PO FOODS AND FLUIDS WITHOUT NAUSEA. PT TEARFUL AT TIMES - REVIEWED HOME MED LIST AND PATIENT TELLS ME SHE WAS TAKING ZOLOFT AT HOME . CALL PLACED TO DR GAMING REGARDING ZOLOFT
[2021-02-14] MEDS ORDERED: SERT100 PO (18:24)
--- NOTE | 2021-02-15 04:08 | NUR ---
SHIFT SUMMARY POD1 L SHOULDER REPAIR, POD6 L FEMUR FX REPAIR, A/O X4 BUT OCCASIONALLY FORGETFUL, VSS, TOLERATING PO, NWB L SIDE, DRESSING C/D/I, VOIDING ON BEDPAN, PT C/O NOT HAVING BM, GAVE PT MOM IN ADDITION TO SCHEDULED STOOL SOFTENERS, STILL NO BM AT THIS TIME, PAIN MANAGED PER EMAR. NO ACUTE EVENTS THIS SHIFT. CALL LIGHT IN REACH, WILL CONTINUE TO MONITOR AND REPORT TO ONCOMING DAY RN.
[2021-02-15 04:36] LABS: BASOPHILS ABSOLUTE AUTO 0.03 K/mm3 (0.00-0.23); BASOPHILS PERCENT AUTO 0 % (0-2); EOSINOPHILS PERCENT AUTO 1 % (0-6); Hematocrit 31.3 % (33.0-51.0); Hemoglobin 10.4 g/dL (11.5-16.0); IMMATURE GRAN ABSOLUTE AUTO 0.21 K/mm3 (0.00-0.10); IMMATURE GRAN PERCENT AUTO 3 % (0-1); LYMPHOCYTES ABSOLUTE AUTO 1.01 K/mm3 (0.84-5.20); LYMPHOCYTES PERCENT AUTO 14 % (21-46); MONOCYTES PERCENT AUTO 16 % (4-13); Mean Corpuscular HGB 31.1 pg (26.0-34.0); Mean Corpuscular HGB Conc 33.2 g/dL (31.5-36.5); Mean Corpuscular Volume 94 fL (80-100); Mean Platelet Volume 8.8 fL (9.1-12.4); NEUTROPHILS ABSOLUTE AUTO 4.64 K/mm3 (1.96-9.15); NEUTROPHILS PERCENT AUTO 66 % (41-73); Platelet Count 215 K/mm3 (150-400); RDW Coefficient Variation 17.9 % (11.7-14.2); RDW Standard Deviation 58.6 fL (35.1-46.3); Red Blood Cell Count 3.34 M/mm3 (3.80-5.20); White Blood Cell Count 7.09 K/mm3 (4.00-11.30)
[2021-02-15 04:50] LABS: Anion Gap 4 mmol/L (6-16); Blood Urea Nitrogen 13 mg/dL (8-24); Bun/Creatinine Ratio 22.6 (12.0-20.0); CO2, Blood 31 mmol/L (21-32); Calcium, Blood 8.6 mg/dL (8.5-10.1); Chloride, Blood 105 mmol/L (98-108); Creatinine, Blood 0.58 mg/dL (0.40-1.00); Glomerular Filtration Rate >60 (60-); Glucose, Blood 99 mg/dL (70-99); Potassium, Blood 4.1 mmol/L (3.5-5.5); Sodium, Blood 140 mmol/L (136-145)
[2021-02-15] MEDS ORDERED: TOPI100 PO ×2 (12:59→13:00)
[2021-02-15] MEDS ORDERED: POTA10T PO (13:01)
[2021-02-15] MEDS ORDERED: MAGNESIUM OXID500 MG PO (13:02)
[2021-02-15] MEDS ORDERED: DOCU100 (13:03)
[2021-02-15] MEDS ORDERED: Vitamin D2000 UNIT PO (13:04)
[2021-02-15] MEDS ORDERED: Biotin800 MCG PO (13:04)
[2021-02-15] MEDS ORDERED: CALCIUM CIT 311 EACH PO (13:05)
[2021-02-15] MEDS ORDERED: SUMA25 PO (13:06)
--- NOTE | 2021-02-15 18:28 | NUR ---
SUMMARY PT TEARFUL, ANXIOUS AT TIMES CALMS WHEN STAFF PRESENT AND PROVIDING REASSURANCE. PT REPORTS HER PAIN HAS LESSENED TODAY COMPARED TO YESTERDAY. PT DOING HER OWN ROM TO LEFT ARM AND SHOULDER AND EXCERCISES TO RIGHT HIP AND SHOULDER INSTRUCTED BY PHYSICAL THERAPY. PT HAS URINARY URGENCY AND INCONTINENT AT TIMES . PT STATES SHE IS CONTINENT AT BASELINE. PT REPORTS SL NUMBNESS TO LEFT THUMB WHICH IS UNCHANGED FROM AM ASSESSMENT. PT DENIES NUMBNESS OR TINGLING TO BLE
[2021-02-16 03:53] LABS: BASOPHILS ABSOLUTE AUTO 0.05 K/mm3 (0.00-0.23); BASOPHILS PERCENT AUTO 1 % (0-2); EOSINOPHILS ABSOLUTE AUTO 0.17 K/mm3 (0.00-0.68); EOSINOPHILS PERCENT AUTO 2 % (0-6); Hematocrit 35.2 % (33.0-51.0); Hemoglobin 11.6 g/dL (11.5-16.0); IMMATURE GRAN ABSOLUTE AUTO 0.34 K/mm3 (0.00-0.10); IMMATURE GRAN PERCENT AUTO 4 % (0-1); LYMPHOCYTES ABSOLUTE AUTO 1.13 K/mm3 (0.84-5.20); LYMPHOCYTES PERCENT AUTO 14 % (21-46); MONOCYTES ABSOLUTE AUTO 1.24 K/mm3 (0.16-1.47); MONOCYTES PERCENT AUTO 15 % (4-13); Mean Corpuscular HGB 31.3 pg (26.0-34.0); Mean Corpuscular Volume 95 fL (80-100); Mean Platelet Volume 8.3 fL (9.1-12.4); NEUTROPHILS ABSOLUTE AUTO 5.11 K/mm3 (1.96-9.15); NEUTROPHILS PERCENT AUTO 64 % (41-73); Platelet Count 276 K/mm3 (150-400); RDW Coefficient Variation 17.5 % (11.7-14.2); Red Blood Cell Count 3.71 M/mm3 (3.80-5.20); White Blood Cell Count 8.04 K/mm3 (4.00-11.30)
[2021-02-16 04:08] LABS: Albumin, Blood 2.5 g/dL (3.4-5.0); Anion Gap 5 mmol/L (6-16); Blood Urea Nitrogen 10 mg/dL (8-24); Bun/Creatinine Ratio 16.9 (12.0-20.0); CO2, Blood 29 mmol/L (21-32); Calcium, Blood 8.5 mg/dL (8.5-10.1); Chloride, Blood 102 mmol/L (98-108); Creatinine, Blood 0.59 mg/dL (0.40-1.00); Glomerular Filtration Rate >60 (60-); Glucose, Blood 95 mg/dL (70-99); Phosphorus, Blood 3.2 mg/dL (2.5-4.9); Potassium, Blood 3.8 mmol/L (3.5-5.5); Sodium, Blood 136 mmol/L (136-145)
--- NOTE | 2021-02-16 04:43 | NUR ---
SHIFT SUMMARY POD7 L HIP, POD2 L SHOULDER, A/O X4, VSS, TOLERATING PO, VOIDING VIA AVLLE, PASSING FLATUS, BM DURING PRIOR DAY SHIFT PER REPORT, NWB L SIDE, UP TO CHAIR W/ PT PER REPORT. NO ACUTE EVENTS THIS SHIFT. CALL LIGHT IN REACH, WILL CONTINUE TO MONITOR AND REPORT TO ONCOMING DAY RN.
[2021-02-16 16:58] LABS: Influenza A, PCR NEGATIVE (NEGATIVE); Influenza B, PCR NEGATIVE (NEGATIVE); Resp Syncytial Virus, PCR NEGATIVE (NEGATIVE); SARS-Cov-2 (COVID-19) PCR, MMC NEGATIVE (NEGATIVE)
--- NOTE | 2021-02-16 19:27 | NUR ---
SHIFT SUMMARY PLAN FOR DISCHARGE TO [facility]. REPORT CALLED TO ÁLVARO CAMACHO AT [facility]. PACKET READY TO BE SENT WITH PT TO SNF. PT'S PAIN MANAGED WITH PO PAIN MEDICATION. PT TOLERATING PO. REPORT GIVEN TO NIC CAMACHO.
--- NOTE | 2021-02-16 20:00 | NUR ---
DISCHARGE SUMMARY PT TRANSPORT CAME TO PICK HER UP VIA , PT TRANSFERED FROM BED TO WC W/O INCIDENT, NO IV ACCESS NOTED ON PT (REMOVED BY DAY RN PER REPPORT, CONFIRMED W/ VISUAL EXAM), PT COMFORTABLE IN WC, BLANKET OFFERED, PT LEFT W/ ALL PERSONAL BELONGINGS OTHER THAN FLOWER VASES WHICH WERE UNABLE TO GO IN THE AMBULANCE. PT ESCORTED OUT W/ APPLIANCE TECHNICIAN ASSISTANCE.
== END 2021-02-16 19:41 | DRG 481 ==
LOC: ER 16:14 → SURS 19:53
PROVIDERS: Emergency Medicine; Family Medicine; Internal Medicine; Orthopaedic Surgery; ADMIT Surgery
PROC: 0SWSXJZ Revision of Synthetic Substitute in Left Hip Joint, Femoral Surface, External Approach (ICD-10-PCS; 2021-02-08)
PROC: 0QS904Z Reposition Left Femoral Shaft with Internal Fixation Device, Open Approach (ICD-10-PCS; principal; 2021-02-09 08:00)
PROC: 0RRK00Z Replacement of Left Shoulder Joint with Reverse Ball and Socket Synthetic Substitute, Open Approach (ICD-10-PCS; 2021-02-14)
DX: S42.242A 4-part fracture of surgical neck of left humerus, initial encounter for closed fracture (principal); T84.021A Dislocation of internal left hip prosthesis, initial encounter; E87.1 Hypo-osmolality and hyponatremia; N39.0 Urinary tract infection, site not specified; M97.02XA Periprosthetic fracture around internal prosthetic left hip joint, initial encounter; Z20.822 Contact with and (suspected) exposure to COVID-19; D64.9 Anemia, unspecified; E78.5 Hyperlipidemia, unspecified; E87.6 Hypokalemia; Z79.82 Long term (current) use of aspirin; Z79.899 Other long term (current) drug therapy; Z88.2 Allergy status to sulfonamides; Z88.5 Allergy status to narcotic agent; Z88.8 Allergy status to other drugs, medicaments and biological substances; F32.9 Major depressive disorder, single episode, unspecified; K21.9 Gastro-esophageal reflux disease without esophagitis; I10 Essential (primary) hypertension; M81.0 Age-related osteoporosis without current pathological fracture; Z98.890 Other specified postprocedural states; Z96.643 Presence of artificial hip joint, bilateral; Z90.710 Acquired absence of both cervix and uterus; Z90.722 Acquired absence of ovaries, bilateral; D72.828 Other elevated white blood cell count; R00.0 Tachycardia, unspecified; Z76.5 Malingerer [conscious simulation]; D69.6 Thrombocytopenia, unspecified; R51.9 Headache, unspecified; W18.2XXA Fall in (into) shower or empty bathtub, initial encounter; Y92.002 Bathroom of unspecified non-institutional (private) residence as the place of occurrence of the external cause
CPT/HCPCS: 0241U; 36415; 36430; 70450; 71045; 72125; 72170; 73030; 73200; 73501; 73552; 78278; 80048; 80053; 80069; 81001; 82607; 82728; 82746; 83540; 83550; 83735; 85014; 85018; 85025; 85045; 85610; 86850; 86900; 86901; 86923; 87077; 87086; 87186; 93005; 93010; 96374-59; 97110; 97112; 97140; 97162; 97166; 97530; 97535; 99152; 99285-25; A9270; A9560; C1713; C1776; J0171; J0690; J0696; J0735; J1100; J1170; J1885; J2060; J2250; J2370; J2405; J2704; J2795; J3010; J7030; J7120; P9016

== ENCOUNTER → 2021-04-10 | Outpatient (CLI) | payer MEDICARE ==
[~2021-04-10] MED LIST changes: +AMLODIPINE BESY10 MG PO; +BENZONATATE100 MG PO; +Biotin800 MCG PO; +CALCIUM CIT 311 EACH PO; +CELEBREX200 MG PO; +DESVENLAFAXINE100 M3 PO; +DOCU100; +Dyazide 37.5/251 EA PO; +GABAPENTIN600 MG PO; +HYDROCODONE-AC1 EA11 PO; +KLOR-CON 1010 ME1 PO; +MAGNESIUM OXID500 MG PO; +METO50ER PO; +POTA10T PO; +PRAVASTATIN SOD20 MG PO; +SUMA25 PO; +TOPROL XL50 MG PO; +TRAZ150T57 PO; +Vitamin D2000 UNIT PO
== END | disposition home or self-care (01) ==
LOC: LAB SHORT 14:17 → LAB 14:17
DX: D48.5 Neoplasm of uncertain behavior of skin (principal)
CPT/HCPCS: 88305

== ENCOUNTER 2021-06-10 07:50 | Emergency (ER) | payer MEDICARE ==
[~2021-06-10] VITALS: Ht 157.5 cm; Wt 50.8 kg
== END 2021-06-10 11:17 | disposition home or self-care (01) ==
LOC: ER 07:50
DX: T84.021A Dislocation of internal left hip prosthesis, initial encounter (principal); I10 Essential (primary) hypertension; K21.9 Gastro-esophageal reflux disease without esophagitis; E78.5 Hyperlipidemia, unspecified; Z88.2 Allergy status to sulfonamides; Z88.5 Allergy status to narcotic agent
CPT/HCPCS: 27266; 73501; 73502; 96374-59; 96375-59; 99284-25; A9270; J1170; J2405; J2704; J7030

== ENCOUNTER → 2021-07-10 | Outpatient (CLI) | payer MEDICARE | LOC: LAB 08:08 → LAB SHORT 08:08 | DX: D48.5 Neoplasm of uncertain behavior of skin (principal); L57.0 Actinic keratosis | CPT/HCPCS: 88305 ==

== ENCOUNTER → 2021-07-31 | Outpatient (CLI) | payer MEDICARE ==
[2021-07-31 15:07] LABS: BASOPHILS ABSOLUTE AUTO 0.04 K/mm3 (0.00-0.23); BASOPHILS PERCENT AUTO 1 % (0-2); EOSINOPHILS PERCENT AUTO 2 % (0-6); Hematocrit 39.1 % (33.0-51.0); IMMATURE GRAN ABSOLUTE AUTO 0.03 K/mm3 (0.00-0.10); IMMATURE GRAN PERCENT AUTO 1 % (0-1); LYMPHOCYTES ABSOLUTE AUTO 1.06 K/mm3 (0.84-5.20); LYMPHOCYTES PERCENT AUTO 22 % (21-46); MONOCYTES PERCENT AUTO 10 % (4-13); Mean Corpuscular HGB 31.9 pg (26.0-34.0); Mean Corpuscular HGB Conc 33.2 g/dL (31.5-36.5); Mean Corpuscular Volume 96 fL (80-100); Mean Platelet Volume 8.4 fL (9.1-12.4); NEUTROPHILS ABSOLUTE AUTO 3.07 K/mm3 (1.96-9.15); NEUTROPHILS PERCENT AUTO 64 % (41-73); Platelet Count 168 K/mm3 (150-400); RDW Coefficient Variation 12.8 % (11.7-14.2); RDW Standard Deviation 45.6 fL (35.1-46.3); Red Blood Cell Count 4.07 M/mm3 (3.80-5.20)
== END | disposition home or self-care (01) ==
LOC: LAB SHORT 11:26 → LAB 11:26
PROVIDERS: Hospitalist
DX: F10.20 Alcohol dependence, uncomplicated (principal); R73.9 Hyperglycemia, unspecified
CPT/HCPCS: 83036; 85025

== ENCOUNTER 2021-08-10 12:12 | Emergency (ER) | payer MEDICARE ==
[~2021-08-10] VITALS: Ht 162.6 cm; Wt 52.6 kg
== END 2021-08-10 14:25 | disposition home or self-care (01) ==
LOC: ER 12:12
DX: T84.021A Dislocation of internal left hip prosthesis, initial encounter (principal); I10 Essential (primary) hypertension; K21.9 Gastro-esophageal reflux disease without esophagitis; E78.5 Hyperlipidemia, unspecified; Z88.2 Allergy status to sulfonamides; Z88.5 Allergy status to narcotic agent; Z88.8 Allergy status to other drugs, medicaments and biological substances; Z79.899 Other long term (current) drug therapy; Z96.642 Presence of left artificial hip joint; X58.XXXA Exposure to other specified factors, initial encounter
CPT/HCPCS: 27250; 73501; 73502; 96374-59; 96375-59; 99152; 99284-25; J1170; J2704; J3010; J7030

== ENCOUNTER 2021-09-02 04:00 | Day surgery (SDC) | payer MEDICARE | END 2021-09-02 12:00 | disposition home or self-care (01) | LOC: WOUND 04:00 | DX: S81.802A Unspecified open wound, left lower leg, initial encounter (principal); X58.XXXA Exposure to other specified factors, initial encounter; I73.9 Peripheral vascular disease, unspecified; I87.2 Venous insufficiency (chronic) (peripheral); Z88.2 Allergy status to sulfonamides | CPT/HCPCS: A9270; G0463 ==

== ENCOUNTER 2021-09-09 05:51 | Day surgery (SDC) | payer MEDICARE | END 2021-09-09 22:54 | disposition home or self-care (01) | LOC: WOUND 05:51 | DX: S81.802A Unspecified open wound, left lower leg, initial encounter (principal); X58.XXXA Exposure to other specified factors, initial encounter; I73.9 Peripheral vascular disease, unspecified; I87.2 Venous insufficiency (chronic) (peripheral) | CPT/HCPCS: A9270 ==

== ENCOUNTER 2021-09-16 06:00 | Day surgery (SDC) | payer MEDICARE | END 2021-09-16 23:25 | disposition home or self-care (01) | LOC: WOUND 06:00 | DX: S81.802A Unspecified open wound, left lower leg, initial encounter (principal); X58.XXXD Exposure to other specified factors, subsequent encounter; I73.9 Peripheral vascular disease, unspecified; I87.2 Venous insufficiency (chronic) (peripheral) | CPT/HCPCS: A9270 ==

== ENCOUNTER 2021-09-23 05:30 | Day surgery (SDC) | payer MEDICARE | END 2021-09-23 23:00 | disposition home or self-care (01) | LOC: WOUND 05:30 | DX: S81.802A Unspecified open wound, left lower leg, initial encounter (principal); X58.XXXA Exposure to other specified factors, initial encounter; I73.9 Peripheral vascular disease, unspecified; I87.2 Venous insufficiency (chronic) (peripheral) | CPT/HCPCS: G0463 ==

== ENCOUNTER 2021-10-08 05:42 | Day surgery (SDC) | payer MEDICARE | END 2021-10-08 22:52 | disposition home or self-care (01) | LOC: WOUND 05:42 | DX: S81.802A Unspecified open wound, left lower leg, initial encounter (principal); X58.XXXA Exposure to other specified factors, initial encounter; I73.9 Peripheral vascular disease, unspecified; I87.2 Venous insufficiency (chronic) (peripheral) | CPT/HCPCS: A9270 ==

== ENCOUNTER 2021-10-14 08:00 | Day surgery (SDC) | payer MEDICARE | END 2021-10-14 23:16 | disposition home or self-care (01) | LOC: WOUND 08:00 | DX: S81.802A Unspecified open wound, left lower leg, initial encounter (principal); X58.XXXA Exposure to other specified factors, initial encounter | CPT/HCPCS: G0463 ==

== ENCOUNTER 2021-10-16 02:31 | Day surgery (SDC) | payer MEDICARE | END 2021-10-16 23:15 | disposition home or self-care (01) | LOC: WOUND 02:31 | DX: S81.802A Unspecified open wound, left lower leg, initial encounter (principal); X58.XXXA Exposure to other specified factors, initial encounter; I73.9 Peripheral vascular disease, unspecified; I87.2 Venous insufficiency (chronic) (peripheral) | CPT/HCPCS: G0463 ==

== ENCOUNTER 2021-10-18 01:46 | Day surgery (SDC) | payer MEDICARE ==
[2021-10-18] MEDS ORDERED: Norco 7.5-3251 EACH PO (23:27)
== END 2021-10-18 12:00 | disposition home or self-care (01) ==
LOC: WOUND 01:46
DX: S81.802A Unspecified open wound, left lower leg, initial encounter (principal); X58.XXXA Exposure to other specified factors, initial encounter; I73.9 Peripheral vascular disease, unspecified; I87.2 Venous insufficiency (chronic) (peripheral)
CPT/HCPCS: G0463

== ENCOUNTER 2021-10-18 23:02 | Emergency (ER) | payer MEDICARE ==
[~2021-10-18] VITALS: Ht 152.4 cm; Wt 52.2 kg
[2021-10-18] MEDS ORDERED: Norco 7.5-3251 EACH PO (23:27)
== END 2021-10-19 02:24 | disposition home or self-care (01) ==
LOC: ER 23:02
DX: T84.021A Dislocation of internal left hip prosthesis, initial encounter (principal); I10 Essential (primary) hypertension; K21.9 Gastro-esophageal reflux disease without esophagitis; E78.5 Hyperlipidemia, unspecified; Z88.2 Allergy status to sulfonamides; Z88.5 Allergy status to narcotic agent; Z88.8 Allergy status to other drugs, medicaments and biological substances; Z79.899 Other long term (current) drug therapy; Z96.643 Presence of artificial hip joint, bilateral; Y83.1 Surgical operation with implant of artificial internal device as the cause of abnormal reaction of the patient, or of later complication, without mention of misadventure at the time of the procedure
CPT/HCPCS: 27265; 73502; 96374; 96375; 99152; 99284-25; J1170; J1885; J2405; J2704; J7030

== ENCOUNTER 2021-10-21 04:11 | Day surgery (SDC) | payer MEDICARE ==
[~2021-10-21 04:11] MED LIST changes: +Norco 7.5-3251 EACH PO
== END 2021-10-21 12:00 | disposition home or self-care (01) ==
LOC: WOUND 04:11
DX: L97.822 Non-pressure chronic ulcer of other part of left lower leg with fat layer exposed (principal); I73.9 Peripheral vascular disease, unspecified; I87.2 Venous insufficiency (chronic) (peripheral)
CPT/HCPCS: A9270

== ENCOUNTER 2021-10-28 02:49 | Day surgery (SDC) | payer MEDICARE | END 2021-10-28 22:55 | disposition home or self-care (01) | LOC: WOUND 02:49 | DX: L97.822 Non-pressure chronic ulcer of other part of left lower leg with fat layer exposed (principal); I73.9 Peripheral vascular disease, unspecified; I87.2 Venous insufficiency (chronic) (peripheral) | CPT/HCPCS: G0463 ==

== ENCOUNTER → 2021-11-13 | Outpatient (CLI) | payer MEDICARE | END | disposition home or self-care (01) | LOC: LAB 14:07 → LAB SHORT 14:07 | DX: G62.9 Polyneuropathy, unspecified (principal); M79.2 Neuralgia and neuritis, unspecified | CPT/HCPCS: 82607 ==

== ENCOUNTER 2021-11-19 08:24 | Day surgery (SDC) | payer MEDICARE | END 2021-11-19 23:29 | disposition home or self-care (01) | LOC: WOUND 08:24 | DX: L97.822 Non-pressure chronic ulcer of other part of left lower leg with fat layer exposed (principal); I73.9 Peripheral vascular disease, unspecified; I87.2 Venous insufficiency (chronic) (peripheral) | CPT/HCPCS: A9270; G0463 ==

== ENCOUNTER → 2022-01-30 | Outpatient (CLI) | payer MEDICARE ==
[~2022-01-30] MED LIST changes: +CHLO25 PO
[2022-01-30 15:29] LABS: Alanine Aminotransfer (ALT/SGP 75 U/L (12-78); Albumin, Blood 3.8 g/dL (3.4-5.0); Albumin/Globulin Ratio 1.5 (0.8-1.8); Alk Phos 82 U/L (50-136); Anion Gap 4 mmol/L (6-16); Aspartate Aminotrans (AST/SGOT 45 U/L (12-37); BASOPHILS ABSOLUTE AUTO 0.05 K/mm3 (0.00-0.23); BASOPHILS PERCENT AUTO 1 % (0-2); Bilirubin, Total 0.5 mg/dL (0.1-1.0); Blood Urea Nitrogen 23 mg/dL (8-24); Bun/Creatinine Ratio 27.7 (12.0-20.0); CO2, Blood 29 mmol/L (21-32); Calcium, Blood 8.7 mg/dL (8.5-10.1); Chloride, Blood 100 mmol/L (98-108); Creatinine, Blood 0.83 mg/dL (0.40-1.00); EOSINOPHILS ABSOLUTE AUTO 0.14 K/mm3 (0.00-0.68); EOSINOPHILS PERCENT AUTO 2 % (0-6); Globulin, Blood 2.5 g/dL (2.2-4.0); Glomerular Filtration Rate >60 (60-); Glucose, Blood 170 mg/dL (70-99); Hematocrit 39.1 % (33.0-51.0); Hemoglobin 12.9 g/dL (11.5-16.0); IMMATURE GRAN ABSOLUTE AUTO 0.02 K/mm3 (0.00-0.10); IMMATURE GRAN PERCENT AUTO 0 % (0-1); LYMPHOCYTES ABSOLUTE AUTO 0.93 K/mm3 (0.84-5.20); LYMPHOCYTES PERCENT AUTO 12 % (21-46); MONOCYTES ABSOLUTE AUTO 0.53 K/mm3 (0.16-1.47); MONOCYTES PERCENT AUTO 7 % (4-13); Mean Corpuscular Volume 100 fL (80-100); Mean Platelet Volume 8.5 fL (9.1-12.4); NEUTROPHILS ABSOLUTE AUTO 6.02 K/mm3 (1.96-9.15); NEUTROPHILS PERCENT AUTO 78 % (41-73); Platelet Count 173 K/mm3 (150-400); Potassium, Blood 4.2 mmol/L (3.5-5.5); RDW Coefficient Variation 12.9 % (11.7-14.2); RDW Standard Deviation 47.6 fL (35.1-46.3); Red Blood Cell Count 3.91 M/mm3 (3.80-5.20); Sodium, Blood 133 mmol/L (136-145); Total Protein, Blood 6.3 g/dL (6.4-8.2); White Blood Cell Count 7.69 K/mm3 (4.00-11.30)
== END | disposition home or self-care (01) ==
LOC: LAB 12:30 → LAB SHORT 12:30
PROVIDERS: Hospitalist
DX: R53.83 Other fatigue (principal)
CPT/HCPCS: 80053; 84443; 85025

== ENCOUNTER → 2022-02-13 | Outpatient (CLI) | payer MEDICARE ==
[~2022-02-13] MED LIST changes: -CHLO25 PO
[2022-02-13 16:25] LABS: Anion Gap 6 mmol/L (6-16); Blood Urea Nitrogen 15 mg/dL (8-24); Bun/Creatinine Ratio 21.7 (12.0-20.0); CO2, Blood 27 mmol/L (21-32); Calcium, Blood 8.5 mg/dL (8.5-10.1); Chloride, Blood 104 mmol/L (98-108); Creatinine, Blood 0.69 mg/dL (0.40-1.00); Glomerular Filtration Rate >60 (60-); Glucose, Blood 98 mg/dL (70-99); Potassium, Blood 4.4 mmol/L (3.5-5.5); Sodium, Blood 137 mmol/L (136-145)
== END | disposition home or self-care (01) ==
LOC: LAB SHORT 11:00
PROVIDERS: Hospitalist
DX: E87.1 Hypo-osmolality and hyponatremia (principal)
CPT/HCPCS: 80048

== ENCOUNTER → 2022-03-20 | Outpatient (CLI) | payer MEDICARE | END | disposition home or self-care (01) | LOC: PLD 12:05 → LAB SHORT 12:05 | DX: D48.5 Neoplasm of uncertain behavior of skin (principal) | CPT/HCPCS: 88305 ==

== ENCOUNTER 2022-04-05 19:13 | Emergency (ER) | payer MEDICARE ==
[~2022-04-05] VITALS: Ht 160 cm; Wt 52.2 kg
== END 2022-04-05 21:58 | disposition home or self-care (01) ==
LOC: ER 19:13
DX: T84.021A Dislocation of internal left hip prosthesis, initial encounter (principal); E78.5 Hyperlipidemia, unspecified; F32.A Depression, unspecified; I10 Essential (primary) hypertension; K21.9 Gastro-esophageal reflux disease without esophagitis; Z88.6 Allergy status to analgesic agent; Z88.2 Allergy status to sulfonamides; Z88.8 Allergy status to other drugs, medicaments and biological substances; Z79.899 Other long term (current) drug therapy; Z87.891 Personal history of nicotine dependence; W19.XXXA Unspecified fall, initial encounter; Y92.9 Unspecified place or not applicable
CPT/HCPCS: 72170; 73502; J1885; J2704

== ENCOUNTER 2022-05-18 08:22 | Emergency (ER) | payer MEDICARE ==
[~2022-05-18] VITALS: Ht 154.9 cm; Wt 70.3 kg
== END 2022-05-18 11:22 | disposition home or self-care (01) ==
LOC: ER 08:22
DX: T84.021A Dislocation of internal left hip prosthesis, initial encounter (principal); I10 Essential (primary) hypertension; Z88.2 Allergy status to sulfonamides; Z79.899 Other long term (current) drug therapy; Z88.8 Allergy status to other drugs, medicaments and biological substances; Z88.5 Allergy status to narcotic agent; Z96.643 Presence of artificial hip joint, bilateral; Z87.891 Personal history of nicotine dependence; Y83.8 Other surgical procedures as the cause of abnormal reaction of the patient, or of later complication, without mention of misadventure at the time of the procedure
CPT/HCPCS: 73501; 73502; J2704; J3010; J7030

== ENCOUNTER 2022-07-03 07:04 | Emergency (ER) | payer MEDICARE ==
[~2022-07-03] VITALS: Ht 154.9 cm; Wt 52.2 kg
[2022-07-03 08:24] LABS: BASOPHILS ABSOLUTE AUTO 0.04 K/mm3 (0.00-0.23); BASOPHILS PERCENT AUTO 1 % (0-2); EOSINOPHILS ABSOLUTE AUTO 0.08 K/mm3 (0.00-0.68); EOSINOPHILS PERCENT AUTO 2 % (0-6); Hematocrit 39.4 % (33.0-51.0); Hemoglobin 13.6 g/dL (11.5-16.0); IMMATURE GRAN ABSOLUTE AUTO 0.04 K/mm3 (0.00-0.10); IMMATURE GRAN PERCENT AUTO 1 % (0-1); LYMPHOCYTES ABSOLUTE AUTO 0.98 K/mm3 (0.84-5.20); LYMPHOCYTES PERCENT AUTO 18 % (21-46); MONOCYTES ABSOLUTE AUTO 0.52 K/mm3 (0.16-1.47); MONOCYTES PERCENT AUTO 10 % (4-13); Mean Corpuscular HGB Conc 34.5 g/dL (31.5-36.5); Mean Corpuscular Volume 99 fL (80-100); Mean Platelet Volume 8.3 fL (9.1-12.4); NEUTROPHILS ABSOLUTE AUTO 3.76 K/mm3 (1.96-9.15); NEUTROPHILS PERCENT AUTO 69 % (41-73); Platelet Count 153 K/mm3 (150-400); RDW Coefficient Variation 14.5 % (11.7-14.2); RDW Standard Deviation 52.7 fL (35.1-46.3); White Blood Cell Count 5.42 K/mm3 (4.00-11.30)
[2022-07-03 08:31] LABS: Albumin, Blood 3.7 g/dL (3.4-5.0); Albumin/Globulin Ratio 1.3 (0.8-1.8); Bilirubin, Total 0.4 mg/dL (0.1-1.0); Bun/Creatinine Ratio 12.7 (12.0-20.0); Calcium, Blood 8.9 mg/dL (8.5-10.1); Creatinine, Blood 0.63 mg/dL (0.40-1.00); Globulin, Blood 2.8 g/dL (2.2-4.0); Potassium, Blood 3.7 mmol/L (3.5-5.5); Total Protein, Blood 6.5 g/dL (6.4-8.2)
[2022-07-03] MEDS ORDERED: CHLO25 PO (09:20)
== END 2022-07-03 09:46 | disposition home or self-care (01) ==
LOC: ER 07:04
PROVIDERS: Emergency Medicine
DX: F10.10 Alcohol abuse, uncomplicated (principal); I10 Essential (primary) hypertension; F32.A Depression, unspecified; Z87.891 Personal history of nicotine dependence; Z79.899 Other long term (current) drug therapy; Y90.5 Blood alcohol level of 100-119 mg/100 ml
CPT/HCPCS: 36415; 80053; 83690; 85025; 99284; A9270; G0480; J7030

== ENCOUNTER → 2022-09-16 | Outpatient (CLI) | payer MEDICARE ==
[~2022-09-16] MED LIST changes: +CHLO25 PO
[2022-09-16 15:07] LABS: BASOPHILS ABSOLUTE AUTO 0.04 K/mm3 (0.00-0.23); BASOPHILS PERCENT AUTO 1 % (0-2); EOSINOPHILS ABSOLUTE AUTO 0.08 K/mm3 (0.00-0.68); EOSINOPHILS PERCENT AUTO 1 % (0-6); Hematocrit 38.3 % (33.0-51.0); Hemoglobin 12.9 g/dL (11.5-16.0); IMMATURE GRAN ABSOLUTE AUTO 0.08 K/mm3 (0.00-0.10); IMMATURE GRAN PERCENT AUTO 1 % (0-1); LYMPHOCYTES ABSOLUTE AUTO 0.98 K/mm3 (0.84-5.20); LYMPHOCYTES PERCENT AUTO 15 % (21-46); MONOCYTES ABSOLUTE AUTO 1.01 K/mm3 (0.16-1.47); MONOCYTES PERCENT AUTO 16 % (4-13); Mean Corpuscular HGB Conc 33.7 g/dL (31.5-36.5); Mean Corpuscular Volume 101 fL (80-100); Mean Platelet Volume 8.6 fL (9.1-12.4); NEUTROPHILS ABSOLUTE AUTO 4.26 K/mm3 (1.96-9.15); NEUTROPHILS PERCENT AUTO 66 % (41-73); Platelet Count 172 K/mm3 (150-400); RDW Coefficient Variation 13.9 % (11.7-14.2); RDW Standard Deviation 51.7 fL (35.1-46.3); Red Blood Cell Count 3.79 M/mm3 (3.80-5.20); White Blood Cell Count 6.45 K/mm3 (4.00-11.30)
[2022-09-16 15:26] LABS: Albumin, Blood 3.6 g/dL (3.4-5.0); Albumin/Globulin Ratio 1.2 (0.8-1.8); Bilirubin, Total 0.5 mg/dL (0.1-1.0); Bun/Creatinine Ratio 25.6 (12.0-20.0); Calcium, Blood 9.3 mg/dL (8.5-10.1); Creatinine, Blood 0.74 mg/dL (0.40-1.00); Potassium, Blood 4.3 mmol/L (3.5-5.5); Total Protein, Blood 6.6 g/dL (6.4-8.2)
== END ==
LOC: LAB 11:30 → LAB SHORT 11:30
PROVIDERS: Hospitalist
DX: G93.31 Postviral fatigue syndrome (principal)
CPT/HCPCS: 80053; 85025

== ENCOUNTER → 2022-12-10 | Outpatient (CLI) | payer MEDICARE | END | disposition home or self-care (01) | LOC: PLD 15:10 → LAB 15:10 → LAB SHORT 15:10 | DX: D48.5 Neoplasm of uncertain behavior of skin (principal) | CPT/HCPCS: 88305 ==

== ENCOUNTER → 2023-02-24 | Outpatient (CLI) | payer MEDICARE | END | disposition home or self-care (01) | LOC: LAB 13:47 → LAB SHORT 13:47 | DX: R30.0 Dysuria (principal) | CPT/HCPCS: 87077; 87086; 87186 ==

== ENCOUNTER → 2023-03-19 | Outpatient (CLI) | payer MEDICARE ==
[2023-03-19 15:46] LABS: BASOPHILS ABSOLUTE AUTO 0.03 K/mm3 (0.00-0.23); BASOPHILS PERCENT AUTO 0 % (0-2); EOSINOPHILS PERCENT AUTO 0 % (0-6); Hematocrit 38.2 % (33.0-51.0); Hemoglobin 13.1 g/dL (11.5-16.0); IMMATURE GRAN ABSOLUTE AUTO 0.07 K/mm3 (0.00-0.10); IMMATURE GRAN PERCENT AUTO 1 % (0-1); LYMPHOCYTES PERCENT AUTO 3 % (21-46); MONOCYTES ABSOLUTE AUTO 0.34 K/mm3 (0.16-1.47); MONOCYTES PERCENT AUTO 3 % (4-13); Mean Corpuscular HGB 33.1 pg (26.0-34.0); Mean Corpuscular HGB Conc 34.3 g/dL (31.5-36.5); Mean Corpuscular Volume 97 fL (80-100); Mean Platelet Volume 8.7 fL (9.1-12.4); NEUTROPHILS ABSOLUTE AUTO 10.77 K/mm3 (1.96-9.15); NEUTROPHILS PERCENT AUTO 94 % (41-73); Platelet Count 245 K/mm3 (150-400); RDW Coefficient Variation 14.2 % (11.7-14.2); RDW Standard Deviation 50.4 fL (35.1-46.3); Red Blood Cell Count 3.96 M/mm3 (3.80-5.20); White Blood Cell Count 11.51 K/mm3 (4.00-11.30)
[2023-03-19 15:47] LABS: Albumin, Blood 4.5 g/dL (3.4-5.0); Albumin/Globulin Ratio 1.5 (0.8-1.8); Bilirubin, Total 0.4 mg/dL (0.1-1.0); Bun/Creatinine Ratio 29.7 (12.0-20.0); Calcium, Blood 9.3 mg/dL (8.5-10.1); Creatinine, Blood 0.81 mg/dL (0.40-1.00); Globulin, Blood 3.1 g/dL (2.2-4.0); Potassium, Blood 3.5 mmol/L (3.5-5.5); Total Protein, Blood 7.6 g/dL (6.4-8.2)
== END ==
LOC: LAB 13:27 → LAB SHORT 13:27
PROVIDERS: Hospitalist
DX: R30.0 Dysuria (principal); R10.13 Epigastric pain
CPT/HCPCS: 80053; 83690; 85025; 87086

== ENCOUNTER → 2023-03-26 | Outpatient (CLI) | payer MEDICARE ==
[2023-03-30 11:47] LABS: Bun/Creatinine Ratio 32.3 (12.0-20.0); Creatinine, Blood 0.9 mg/dL (0.40-1.00); Potassium, Blood 3.7 mmol/L (3.5-5.5); Thyroid Stimulating Hormone 1.27 uIU/mL (0.360-4.800)
== END | disposition home or self-care (01) ==
LOC: LAB SHORT 14:15 → LAB 14:15
PROVIDERS: Hospitalist
DX: R00.0 Tachycardia, unspecified (principal)
CPT/HCPCS: 80048; 84443

== ENCOUNTER → 2023-05-26 | Outpatient (CLI) | payer MEDICARE | LOC: LAB 13:50 → LAB SHORT 13:50 | DX: R60.9 Edema, unspecified (principal) | CPT/HCPCS: 83880 ==

== ENCOUNTER 2023-07-12 15:45 | Inpatient (IN) | payer OTHER, MEDICARE ==
[~2023-07-12] VITALS: Ht 160 cm; Wt 50.2 kg
[2023-07-12 16:39] LABS: BASOPHILS ABSOLUTE AUTO 0.05 K/mm3 (0.00-0.23); BASOPHILS PERCENT AUTO 1 % (0-2); EOSINOPHILS ABSOLUTE AUTO 0.13 K/mm3 (0.00-0.68); EOSINOPHILS PERCENT AUTO 2 % (0-6); Hematocrit 37.4 % (33.0-51.0); Hemoglobin 12.6 g/dL (11.5-16.0); IMMATURE GRAN ABSOLUTE AUTO 0.07 K/mm3 (0.00-0.10); IMMATURE GRAN PERCENT AUTO 1 % (0-1); LYMPHOCYTES ABSOLUTE AUTO 0.68 K/mm3 (0.84-5.20); LYMPHOCYTES PERCENT AUTO 12 % (21-46); MONOCYTES ABSOLUTE AUTO 0.78 K/mm3 (0.16-1.47); MONOCYTES PERCENT AUTO 14 % (4-13); Mean Corpuscular HGB Conc 33.7 g/dL (31.5-36.5); Mean Corpuscular Volume 101 fL (80-100); Mean Platelet Volume 8.3 fL (9.1-12.4); NEUTROPHILS ABSOLUTE AUTO 4.02 K/mm3 (1.96-9.15); NEUTROPHILS PERCENT AUTO 70 % (41-73); Platelet Count 165 K/mm3 (150-400); RDW Coefficient Variation 14.6 % (11.7-14.2); RDW Standard Deviation 53.6 fL (35.1-46.3); Red Blood Cell Count 3.71 M/mm3 (3.80-5.20); White Blood Cell Count 5.73 K/mm3 (4.00-11.30)
[2023-07-12 17:05] LABS: Albumin, Blood 3.7 g/dL (3.4-5.0); Albumin/Globulin Ratio 1.3 (0.8-1.8); Bilirubin, Total 0.4 mg/dL (0.1-1.0); Calcium, Blood 8.7 mg/dL (8.5-10.1); Creatinine, Blood 0.53 mg/dL (0.40-1.00); Globulin, Blood 2.9 g/dL (2.2-4.0); Potassium, Blood 3.4 mmol/L (3.5-5.5); Total Protein, Blood 6.6 g/dL (6.4-8.2)
[2023-07-12 19:00] VITALS: BP 159/107
[2023-07-12 19:15] VITALS: BP 177/95
[2023-07-12] MEDS ORDERED: FURO40 PO (20:24)
[2023-07-12] MEDS ORDERED: CELE200 PO (20:25)
[2023-07-12] MEDS ORDERED: MIRT15 PO (20:25)
[2023-07-12 21:31] VITALS: BP 185/107
[2023-07-13 04:15] VITALS: BP 183/91
[2023-07-13 04:44] LABS: BASOPHILS ABSOLUTE AUTO 0.05 K/mm3 (0.00-0.23); BASOPHILS PERCENT AUTO 1 % (0-2); EOSINOPHILS PERCENT AUTO 4 % (0-6); Hematocrit 37.4 % (33.0-51.0); Hemoglobin 12.6 g/dL (11.5-16.0); IMMATURE GRAN ABSOLUTE AUTO 0.08 K/mm3 (0.00-0.10); IMMATURE GRAN PERCENT AUTO 2 % (0-1); LYMPHOCYTES ABSOLUTE AUTO 0.71 K/mm3 (0.84-5.20); LYMPHOCYTES PERCENT AUTO 14 % (21-46); MONOCYTES ABSOLUTE AUTO 0.56 K/mm3 (0.16-1.47); MONOCYTES PERCENT AUTO 11 % (4-13); Mean Corpuscular HGB 34.5 pg (26.0-34.0); Mean Corpuscular HGB Conc 33.7 g/dL (31.5-36.5); Mean Corpuscular Volume 103 fL (80-100); Mean Platelet Volume 8.5 fL (9.1-12.4); NEUTROPHILS ABSOLUTE AUTO 3.33 K/mm3 (1.96-9.15); NEUTROPHILS PERCENT AUTO 68 % (41-73); Platelet Count 153 K/mm3 (150-400); RDW Coefficient Variation 14.6 % (11.7-14.2); RDW Standard Deviation 55.6 fL (35.1-46.3); Red Blood Cell Count 3.65 M/mm3 (3.80-5.20); White Blood Cell Count 4.93 K/mm3 (4.00-11.30)
[2023-07-13 05:08] LABS: Albumin, Blood 3.4 g/dL (3.4-5.0); Albumin/Globulin Ratio 1.3 (0.8-1.8); Bilirubin, Total 0.4 mg/dL (0.1-1.0); Calcium, Blood 8.2 mg/dL (8.5-10.1); Creatinine, Blood 0.53 mg/dL (0.40-1.00); Globulin, Blood 2.7 g/dL (2.2-4.0); Magnesium, Blood 2.4 mg/dL (1.6-2.4); Potassium, Blood 3.5 mmol/L (3.5-5.5); Total Protein, Blood 6.1 g/dL (6.4-8.2)
--- NOTE | 2023-07-13 06:04 | NUR ---
PT ADMITTED LAST NIGHT WITH R HIP FX, AOX4, PLEASANT, REQUESTING PUREWICK, HAS A CANE BUT DOES NOT WANT TO GET OOB DUE TO R HIP PAIN. DILAUDID MODERATELY EFFECTIVE FOR PAIN. HYPERTENSIVE OTHERWISE VSS ON RA. SKIN CHECK COMPLETED WITH NAFISA CAMACHO, PT HAS SCATTERED BRUISING AND SCABS BUT NO PRESSURE INJURIES NOTED. FIRE SAFETY REVIEWED. SOME N/V THAT RESOLVED WITHOUT MEDICATION.
[2023-07-13 07:30] VITALS: BP 170/88
[2023-07-13 15:17] VITALS: BP 167/88
--- NOTE | 2023-07-13 17:36 | NUR ---
SUMMARY- PT A/O X4, ABLE TO GET UP TO THE CHAIR WITH SBA. GOOD STRENGTH, STEADY IN FEET. HAS DECIDED SHE FEELS COMFORTABLE GOING HOME INSTEAD OF TO [facility]. PAIN CONTROLLED WITH NORCO 5MG Q4 PRN. TOLERTING FOOD AND FLUID, VOIDING IN BSC AND USING PUREWIK WHILE IN BED. PT HAS STRESS INCONTINANCE-
[2023-07-13 19:23] VITALS: BP 142/86
[2023-07-14 04:26] VITALS: BP 159/85
--- NOTE | 2023-07-14 05:56 | NUR ---
SHIFT SUMMARY PRN NORCO GIVEN X2 FOR R HIP PAIN. NO OTHER COMPLAINTS, PT SLEPT THROUGH THE NIGHT. FIRE SAFETY REVIEWED, NO IGNITION SOURCES.
[2023-07-14 07:31] VITALS: BP 160/93
[2023-07-14] MEDS ORDERED: Sen-O-Tab8.6 MG PO (11:51)
[2023-07-14] MEDS ORDERED: DOCU100 PO (11:51)
--- NOTE | 2023-07-14 15:46 | NUR ---
DISCHARGE NOTE PT DISCHARGED HOME AT APPROX 12:45. PT WAS PROVIDED WRITTEN AND VERBAL INSTRUCTIONS AND REPORTED UNDERSTANDING. PT A&OX4, VOIDING, TOLERATING PO, VSS, AND PAIN MANAGED. PT WAS PROVIDED WITH WRITTEN PERSCRIPTION AND OTHER PRESCRIPTIONS FAXED TO [facility]. BELONGINS WERE RETURNED AND SEJAL ESCOURTED PT OUT VIA W/C.
== END 2023-07-14 12:57 | disposition home health service (06) | DRG 536 ==
LOC: ER 15:45 → MEDS 15:46
PROVIDERS: Student in an Organized Health Care Education/Training Program; ADMIT Student in an Organized Health Care Education/Training Program
DX: S32.591A Other specified fracture of right pubis, initial encounter for closed fracture (principal); I10 Essential (primary) hypertension; F32.A Depression, unspecified; M19.90 Unspecified osteoarthritis, unspecified site; G43.909 Migraine, unspecified, not intractable, without status migrainosus; K21.9 Gastro-esophageal reflux disease without esophagitis; E78.5 Hyperlipidemia, unspecified; G62.9 Polyneuropathy, unspecified; W01.0XXA Fall on same level from slipping, tripping and stumbling without subsequent striking against object, initial encounter; Z96.643 Presence of artificial hip joint, bilateral; Z98.1 Arthrodesis status; Z90.710 Acquired absence of both cervix and uterus; Z90.722 Acquired absence of ovaries, bilateral; Z87.81 Personal history of (healed) traumatic fracture; Z98.891 History of uterine scar from previous surgery; Z88.2 Allergy status to sulfonamides; Z88.8 Allergy status to other drugs, medicaments and biological substances; Z79.891 Long term (current) use of opiate analgesic; Z79.899 Other long term (current) drug therapy; Z87.891 Personal history of nicotine dependence
CPT/HCPCS: 36415; 80053; 83735; 85025; 96372; 96374; 96375; 96376; 97110; 97162; 97530; 99284-25; A9270; G0378; J0360; J1170; J1650; J1885; J2405; J3010